=== PATIENT | female | born 1970 | race Hispanic/Latino ===

== ENCOUNTER → 2025-05-04 | Outpatient (CLI) | payer OTHER ==
--- NOTE | 2025-05-05 09:37 | HMCIMG ---
EXAM: CT Cardiac calcium scoring. CLINICAL HISTORY: CAD screening. TECHNIQUE: Thin collimated axial CT cardiac images were obtained. A CT scan is done according to ALARA (As Low As Reasonably Achievable). CONTRAST: None. COMPARISON: None provided. FINDINGS: Calcium Score: VESSEL Number of lesions Volume mm3 Equi. Mass/mg Calcium score LM 0 00.00 00.00 00.00 LAD 0 00.00 00.00 00.00 LCX 1 1.3 --.-- 1.5 RCA 0 00.00 00.00 00.00 Total 1 1.3 --.-- 1.5 IMPRESSION: The calcium score is 1.5. This places the patient above 50th percentile in comparison to a group of patients asymptomatic for coronary artery disease with the same age and gender. This means that >50% of females aged 55-59 have a calcium score that is lower than the patient's. /[place]
== END | disposition home or self-care (01) ==
LOC: RAH 13:52
PROVIDERS: ATTEND Physician Assistant Medical
DX: Z13.6 Encounter for screening for cardiovascular disorders (principal); I25.10 Atherosclerotic heart disease of native coronary artery without angina pectoris
CPT/HCPCS: 75571